=== PATIENT | male | born 1945 | race Caucasian/White ===

== ENCOUNTER 2019-04-25 11:22 | Outpatient (CLI) | payer MEDICARE ==
[2019-04-25 13:15] LABS: Hemoglobin 16.5 g/dL (14.0-18.0); Mean Corpuscular HGB CONC 33.5 g/dL (32.0-36.0); Mean Corpuscular Hemoglobin 30.9 pg (27.0-31.0); Mean Corpuscular Volume 92.4 fL (78.0-98.0); Mean Platelet Volume 7.7 fL (7.4-10.4); Platelet Count 171 thou/uL (130-400); RBC Distribution Width 13.4 % (11.5-14.5); Red Blood Cell (RBC) Count 5.33 mill/uL (4.70-6.10); White Blood Cell (WBC) Count 7.9 thou/uL (4.8-10.8)
[2019-04-25 13:23] LABS: PTT 31.4 SEC (22.9-36.1); Prothrombin Time 13.4 SEC (12.0-14.7)
[2019-04-25 13:33] LABS: Anion Gap 15 mmol/L (10-20); BUN (Urea Nitrogen) 21 mg/dL (8.4-25.7); Calc. Creatinine Clearance 0 mL/min (70-130); Calcium 10.3 mg/dL (7.8-10.44); Carbon Dioxide 25 mmol/L (23-31); Chloride 106 mmol/L (98-107); Estimated GFR-MDRD 54; Glucose 82 mg/dL (83-110); Potassium 4.5 mmol/L (3.5-5.1); Sodium 141 mmol/L (136-145)
[2019-04-25 13:38] LABS: Bilirubin Negative (Negative); Blood, Urine Negative (Negative); Clarity Clear (Clear); Glucose, Urine (Dipstick) Normal (Negative); Leukocyte Negative Leu/uL (Negative); Nitrite Negative (Negative); Protein, Urine (Dipstick) Negative (Neg-Trace); RBC/HPF 0-3 HPF (0-3); Squamous Epithelial 0-3 HPF (0-3); Urobilinogen Normal mg/dL (Less than 2); WBC/HPF 0-3 HPF (0-3)
[2019-04-25 13:48] LABS: Bacteria/HPF None Seen HPF (None Seen)
[2019-04-25 13:49] LABS: Calcium Oxalate Crystals 2+ HPF (None Seen)
== END 2019-04-25 11:23 | disposition home or self-care (01) ==
LOC: LABBT 11:22
PROVIDERS: ATTEND Urology
DX: Z01.818 Encounter for other preprocedural examination (principal); E78.5 Hyperlipidemia, unspecified; E66.9 Obesity, unspecified; K21.9 Gastro-esophageal reflux disease without esophagitis; N18.3 Chronic kidney disease, stage 3 (moderate); R97.20 Elevated prostate specific antigen [PSA]; R74.8 Abnormal levels of other serum enzymes; M10.9 Gout, unspecified
CPT/HCPCS: 80048; 81001; 85027; 85610; 85730; 87086; 93005; 93010

== ENCOUNTER 2019-05-03 08:24 | Day surgery (SDC) | payer MEDICARE ==
[2019-04-25 11:42] VITALS: BMI 32.8
[2019-05-03] MEDS ORDERED: cefTRIAXone\\ROCEPHIN 1 GM VIAL ONE (09:11)
[2019-05-03] MEDS ORDERED: Sodium Chloride 0.9% 100 ML ONE (09:11)
[2019-05-03] MEDS ORDERED: Midazolam HCl 2 mg/2 ml Vial ONE (10:04)
[2019-05-03] MEDS ORDERED: Meperidine HCl/PF 25 MG/ML VIAL ONE (10:04)
[2019-05-03] MEDS ORDERED: Propofol 500 MG/50 ML VIAL ONE (10:23)
[2019-05-03] MEDS ORDERED: Lidocaine 1% PF 5 ML VIAL ONE (11:57)
[2019-05-03] MEDS ORDERED: HYDROcodone/Acetaminophen 5/325 mg Tablet ONE (12:11)
--- NOTE | 2019-05-04 11:54 | OP ---
DATE OF PROCEDURE: 05/03/2019 SERVICE: Urology. PREOPERATIVE DIAGNOSIS: Elevated PSA. POSTOPERATIVE DIAGNOSIS: Elevated PSA. PROCEDURE PERFORMED: Transrectal ultrasound-guided biopsy with MRI fusion. INDICATION FOR PROCEDURE: Mr. Hinton is a 73-year-old white male with history of TURP in the past. His PSA has been rising and he had a concerning lesion on MRI. We elected to proceed forward with MRI fusion biopsy to identify if there was any cancer present with risks and benefits discussed. DESCRIPTION OF PROCEDURE: After identification of armband and verification of consent, the patient was brought back to the operating room where he underwent total intravenous anesthesia. He was then placed in the left lateral decubitus position and the transrectal ultrasound placed into the patient's rectum. The MRI fusion process was carried out in the standard fashion by lining up the MR imaging over the ultrasound findings. This did lead to the area of concern appearing on the prostate. The targeted area was biopsied approximately 5 times with standard 12 core biopsies taken throughout the remainder of the prostate in the standard sextant template. After the procedure, the ultrasound probe was removed and the patient was returned back to the supine position. He was then awakened and taken to Day Stay for recovery in stable condition. COMPLICATIONS: None. ESTIMATED BLOOD LOSS: Minimal. RETAINED TUBES AND DRAINS: None. SPECIMENS: Prostate biopsies. DISPOSITION: The patient will be discharged home and follow up with me in approximately 1 to 2 weeks for biopsy results. Job ID: [id number]
== END 2019-05-03 13:40 | disposition home or self-care (01) ==
LOC: SDC 08:24
PROVIDERS: ATTEND Urology
PROC: 0VB03ZX Excision of Prostate, Percutaneous Approach, Diagnostic (ICD-10-PCS; principal; 2019-05-03)
DX: C61 Malignant neoplasm of prostate (principal); M19.90 Unspecified osteoarthritis, unspecified site; K21.9 Gastro-esophageal reflux disease without esophagitis; M10.9 Gout, unspecified; N18.3 Chronic kidney disease, stage 3 (moderate); N40.1 Benign prostatic hyperplasia with lower urinary tract symptoms; N52.34 Erectile dysfunction following simple prostatectomy; Z79.1 Long term (current) use of non-steroidal anti-inflammatories (NSAID); Z79.82 Long term (current) use of aspirin; Z79.899 Other long term (current) drug therapy; Z88.2 Allergy status to sulfonamides
CPT/HCPCS: 88305; J0696; J2001; J2175; J2250; J2704; J3490

== ENCOUNTER 2019-05-29 09:45 | Outpatient (CLI) | payer MEDICARE ==
--- NOTE | 2019-05-29 13:23 | NM ---
NM Bone Scan STANDARD History: Prostate cancer. Malignant neoplasm of prostate Comparison: None. Findings: Delayed whole-body imaging was obtained after the intravenous administration 32.9 mCi techn etium 99m MDP. Adequate osseous radiotracer uptake. Scattered degenerative changes of the midfoot bilaterally as wel l as of the knees. No evidence for osseous metastatic disease. Kidneys and urinary bladder are visualized. Impression: No evidence for osseous metastatic disease.
== END 2019-05-29 09:46 | disposition home or self-care (01) ==
LOC: NM 09:45
PROVIDERS: ATTEND Urology
DX: C61 Malignant neoplasm of prostate (principal)
CPT/HCPCS: 78306; A9503

== ENCOUNTER 2019-12-19 10:24 | Outpatient (CLI) | payer MEDICARE ==
--- NOTE | 2019-12-19 11:08 | CT ---
CT Stone Protocol 12/19/2019 12:00 AM HISTORY: Blood in urine. Diagnosis of prostate cancer. COMPARISON: None. Technique: Multiple contiguous axial CT images are obtained through the abdomen and pelvis without IV contrast. Coronal reformats are provided. FINDINGS: This examination is limited for the evaluation of solid organs and vascular structures due to the lac k of intravenous contrast. Lower Chest: Lung bases are clear. Vascular calcifications are seen in the coronary arteries. Small hiatal hernia is seen. Abdomen: Liver: Diminished attenuation relative to the spleen suggesting fatty infiltration. Small area of fat ty sparing is seen adjacent to the gallbladder. Gallbladder: Contracted. Pancreas: Grossly normal nonenhanced CT appearance. Spleen: Single punctate calcified granuloma. Adrenals: Grossly normal nonenhanced CT appearance. Kidneys: 2 nonobstructing right renal calculi are seen each measuring approximately 2 mm. No hydronep hrosis is present. Nonspecific symmetric bilateral perinephric stranding. Ureters: No ureteral calculus is seen.. Pelvis: Urinary bladder: Decompressed. Reproductive Organs: No pelvic masses. Lymph Nodes: No enlarged lymph nodes. Bowel: Normal caliber. Appendix: Not visualized. There is a metallic clip seen at the cecal apex, and findings may be attrib utable to prior appendectomy. Peritoneum: No free fluid, free air, or fluid collection. Retroperitoneum: within normal limits. Vessels: Vascular calcifications are seen in the abdominal aorta and iliac arteries.. Abdominal Wall: within normal limits. Bones: Degenerative changes are seen at the pubic symphysis. There is a focus of gas seen just superi or and anterior to the pubic symphysis which may be attributable to degenerative changes at this level. Surgical clips are also seen adjacent to the pubic symphysis. Degenerative changes are seen in the spine. Bilateral hip osteoarthritis is present. IMPRESSION: 1. Nonobstructing right renal calculi. No left renal or ureteral calculi are seen. No hydronephrosis is present. 2. Small hiatal hernia. 3. Fatty infiltration of the liver.
== END 2019-12-19 10:25 | disposition home or self-care (01) ==
LOC: SCSCT 10:24
PROVIDERS: ATTEND Internal Medicine Hematology & Oncology
DX: C61 Malignant neoplasm of prostate (principal); R31.0 Gross hematuria; N20.0 Calculus of kidney; K44.9 Diaphragmatic hernia without obstruction or gangrene; K76.0 Fatty (change of) liver, not elsewhere classified
CPT/HCPCS: 74176

== ENCOUNTER 2019-12-27 07:20 | Outpatient (CLI) | payer MEDICARE ==
[2019-12-27 13:07] LABS: PTT 32.9 SEC (22.9-36.1); Prothrombin Time 13.6 SEC (12.0-14.7)
[2019-12-27 13:12] LABS: Hemoglobin 13.3 g/dL (14.0-18.0); Mean Corpuscular HGB CONC 33.3 g/dL (32.0-36.0); Mean Corpuscular Hemoglobin 31.9 pg (27.0-31.0); Mean Corpuscular Volume 95.8 fL (78.0-98.0); Platelet Count 144 thou/uL (130-400); RBC Distribution Width 15.3 % (11.5-14.5); Red Blood Cell (RBC) Count 4.16 mill/uL (4.70-6.10); White Blood Cell (WBC) Count 23.4 thou/uL (4.8-10.8)
[2019-12-27 13:20] LABS: Anion Gap 16 mmol/L (10-20); BUN (Urea Nitrogen) 21 mg/dL (8.4-25.7); Calc. Creatinine Clearance 0 mL/min (70-130); Calcium 10.2 mg/dL (7.8-10.44); Carbon Dioxide 20 mmol/L (23-31); Chloride 104 mmol/L (98-107); Estimated GFR-MDRD 57; Glucose 119 mg/dL (83-110); Potassium 4.2 mmol/L (3.5-5.1); Sodium 136 mmol/L (136-145)
[2019-12-27 13:41] LABS: Bilirubin Negative (Negative); Blood, Urine 3+ (Negative); Clarity Turbid (Clear); Glucose, Urine (Dipstick) Normal (Negative); Leukocyte 25 Leu/uL (Negative); Nitrite Negative (Negative); Protein, Urine (Dipstick) 50 mg/dL (Neg-Trace); RBC/HPF Greater than 50 HPF (0-3); Squamous Epithelial None Seen HPF (0-3); Urobilinogen Normal mg/dL (Less than 2); WBC/HPF 21-50 HPF (0-3)
[2019-12-27 14:12] LABS: Bacteria/HPF 1+ HPF (None Seen)
[2019-12-27 14:13] LABS: Calcium Oxalate Crystals 2+ HPF (None Seen)
--- NOTE | 2019-12-28 06:58 | EKG ---
Test Reason : Blood Pressure : / mmHG Vent. Rate : 093 BPM Atrial Rate : 093 BPM P-R Int : 132 ms QRS Dur : 064 ms QT Int : 344 ms P-R-T Axes : 058 035 014 degrees QTc Int : 427 ms Normal sinus rhythm Anterior infarct , age undetermined Abnormal ECG When compared with ECG of 25-APR-2019 12:25, Nonspecific T wave abnormality now evident in Anterior leads Confirmed by DR. Asha GONZALEZ ([id number]) on 12/28/2019 6:58:02 AM Referred By: DELIA Confirmed By:DR. Asha GONZALEZ
== END 2019-12-27 07:21 | disposition home or self-care (01) ==
LOC: LABBT 07:20
PROVIDERS: ATTEND Urology
DX: Z01.818 Encounter for other preprocedural examination (principal); C61 Malignant neoplasm of prostate; R31.0 Gross hematuria; N32.0 Bladder-neck obstruction
CPT/HCPCS: 80048; 81001; 85027; 85610; 85730; 87086; 93005; 93010

== ENCOUNTER 2020-01-02 12:42 | Outpatient (CLI) | payer MEDICARE, OTHER ==
[2020-01-02 18:02] LABS: SARS-CoV-2 MS2 Positive; SARS-CoV-2 N Gene Negative; SARS-CoV-2 S Gene Negative; SARS-CoV-2 orf1ab Negative
== END 2020-01-02 12:43 | disposition home or self-care (01) ==
LOC: LABBT 12:42
PROVIDERS: ATTEND Urology
DX: Z11.59 Encounter for screening for other viral diseases (principal)
CPT/HCPCS: 87635; U0003

== ENCOUNTER 2020-01-03 05:56 | Day surgery (SDC) | payer MEDICARE ==
[2020-01-03] MEDS ORDERED: Levofloxacin 500 mg/D5W 100 ml Premix Bag ONE (06:22)
[2020-01-03] MEDS ORDERED: Fentanyl 100 MCG/2 ML VIAL ONE (06:33)
[2020-01-03] MEDS ORDERED: Midazolam HCl 2 mg/2 ml Vial ONE (07:06)
[2020-01-03] MEDS ORDERED: Promethazine HCl 25 MG/ML VIAL SLOW IVP PRN (08:36)
[2020-01-03] MEDS ORDERED: Ondansetron HCl/PF 4 MG/2 ML Vial IVP PRN (08:36)
[2020-01-03] MEDS ORDERED: Promethazine HCl 25 MG/ML VIAL IM PRN (08:36)
[2020-01-03] MEDS ORDERED: Oxybutynin 5 MG TAB PO PRN (08:45)
[2020-01-03] MEDS ORDERED: Ondansetron PF 4 MG/2 ML Vial IVP PRN (08:45)
[2020-01-03] MEDS ORDERED: Hyoscyamine Sulfate SL 0.125 mg Tablet SL PRN (08:45)
[2020-01-03] MEDS ORDERED: diphenhydrAMINE 25 MG CAP PO PRN (08:45)
[2020-01-03] MEDS ORDERED: hydrALAZINE 20 MG/ML VIAL SLOW IVP PRN (08:45)
[2020-01-03] MEDS ORDERED: Bisacodyl 10 MG SUPP PR PRN (08:45)
[2020-01-03] MEDS ORDERED: Morphine 2 MG/ML SYRINGE SLOW IVP PRN (08:45)
[2020-01-03] MEDS ORDERED: Acetaminophen 500 MG TAB PO PRN (08:45)
[2020-01-03] MEDS ORDERED: Mag-Al 1200 mg/1200 mg/30 ML UDCUP PO PRN (08:45)
[2020-01-03] MEDS ORDERED: traMADol HCl 50 MG TAB PO PRN (08:47)
[2020-01-03] MEDS ORDERED: Vancomycin 1 GM in Premix Bag 1 BAG IVPB SCH (09:00)
[2020-01-03] MEDS ORDERED: Konsyl 6 gm Packet PO SCH (09:00)
--- NOTE | 2020-01-03 09:30 | OP ---
DATE OF PROCEDURE: 01/03/2020 SERVICE: Urology. PREOPERATIVE DIAGNOSES: Prostate cancer with obstruction and gross hematuria. POSTOPERATIVE DIAGNOSES: Prostate cancer with obstruction and gross hematuria. PROCEDURE PERFORMED: Transurethral resection of prostate, repeat surgery for regrowth. INDICATION FOR SURGERY: Mr. Hinton is a 74-year-old white male with history of prostate cancer, high risk, which is currently being treated with radiation and chemotherapy. He developed gross hematuria and on cystoscopy, he was found to have a hypertrophic nodule within the prostatic urethra, which was likely resulting in urinary obstruction as well as his hematuria. We discussed treatment conservatively with ongoing chemo, androgen deprivation, and allowing the radiation to cause shrinkage versus just resecting this and being treated more quickly. He elected for the surgical approach. Risks and benefits were discussed and he has agreed to proceed forward. DESCRIPTION OF PROCEDURE: After identification of armband and verification of consent, the patient was brought back to the operating room. He underwent anesthesia with endotracheal intubation. He was then placed in a dorsal lithotomy position and prepped and draped in usual sterile fashion. After appropriate time-out, a lubricated 26-Peruvian resectoscope sheath with visual obturator was passed through the urethra into the prostate. There was a mild bulbar annular stricture, which was easily navigated past. The prostate was mostly resected out and very atrophic except for the hypertrophic nodule, which previously had been noted on outpatient cystoscopy. The bladder neck was slightly narrowed. Both ureters were in orthotopic location. The bladder was otherwise unremarkable without any significant evidence of any kind of radiation cystitis. The visual obturator was switched out for the bipolar prostate resectoscope loop. Resection was started on the hypertrophic nodule, which was primarily anteriorly and to the right. This was shaved down until it was flushed with the remainder of the prostatic capsule. A few other areas of hypertrophy and reddened areas, which could bleed were also resected and cauterized. Any bleeding areas were cauterized. Meticulous hemostasis was then performed. The bladder neck was slightly narrowed and the left side was further away from the ureteral orifice than the right. I only resected part of the left bladder neck to allow for widening of the urine stream. This area was then meticulously cauterized. The prostate chips and part of the bladder neck were then evacuated using the resectoscope sheath and sent off for routine pathologic evaluation. Upon completion, both ureters were in orthotopic location unharmed. The bladder was normal. The bleeding was completely stopped within the prostatic urethra and the prostate was wide open with no evidence of ongoing bleeding. The bladder was left full and the resectoscope removed. A 20-Peruvian two-way Pedroza catheter was placed with ease into the bladder with 15 mL of sterile water into the balloon. This was then affixed to gravity bag for drainage and secured with a StatLock. The patient was then taken out of positioning, awakened, taken to PACU for recovery in stable condition. COMPLICATIONS: None. ESTIMATED BLOOD LOSS: Minimal. RETAINED TUBES AND DRAINS: A 20-Peruvian Pedroza catheter to gravity drainage with 15 mL of sterile water in the balloon. SPECIMENS: Prostate chips. DISPOSITION: The patient will be kept in the hospital overnight for monitoring and bleeding. He can undergo a void trial in the morning, so long as his hematuria is [id number]. We will then handle his care on an outpatient basis. He will continue to get his chemotherapy treatments. He has completed with radiation. This will be handled by the Oncology Department on an outpatient basis. Job ID: [id number]
[2020-01-03] MEDS: Docusate 100 MG CAP PO SCH ×2 (11:05→21:14)
[2020-01-03] MEDS: Famotidine 20 MG TAB PO SCH ×2 (11:05→21:14)
[2020-01-03 11:29] VITALS: BMI 32.8
[2020-01-03] MEDS: Vancomycin 1 GM in Premix Bag 1 BAG IVPB SCH ×2 (11:58→23:16)
[2020-01-03] MEDS: Phenazopyridine HCl 97.5 MG TABLET PO PRN ×2 (12:00→21:25)
[2020-01-03] MEDS ORDERED: predniSONE 5 MG TAB PO SCH (18:00)
[2020-01-03] MEDS ORDERED: Atorvastatin Calcium 20 MG TAB PO SCH (21:00)
[2020-01-03] MEDS ORDERED: Allopurinol 300 MG TAB PO SCH (21:00)
[2020-01-03] MEDS: Metamucil PACK PO SCH (21:15)
[2020-01-04 05:39] LABS: #Lymphocytes 0.9 thou/uL (1.20-3.40); #Monocytes 0.8 thou/uL (0.11-0.59); #Neutrophils 9.9 thou/uL (1.40-6.50); %Basophils 0.3 % (0.0-1.0); %Eosinophils 0.1 % (0.0-10.0); %Lymphocytes 7.9 % (21.0-51.0); %Monocytes 6.8 % (0.0-10.0); %Neutrophils 84.9 % (42.0-75.0); Mean Corpuscular HGB CONC 32.3 g/dL (32.0-36.0); Mean Corpuscular Hemoglobin 31.5 pg (27.0-31.0); Mean Corpuscular Volume 97.6 fL (78.0-98.0); Mean Platelet Volume 8.1 fL (7.4-10.4); Platelet Count 143 thou/uL (130-400); RBC Distribution Width 15.6 % (11.5-14.5); White Blood Cell (WBC) Count 11.6 thou/uL (4.8-10.8)
[2020-01-04 05:54] LABS: Anion Gap 12 mmol/L (10-20); BUN (Urea Nitrogen) 19 mg/dL (8.4-25.7); Calc. Creatinine Clearance 88 mL/min (70-130); Calcium 10.2 mg/dL (7.8-10.44); Carbon Dioxide 24 mmol/L (23-31); Chloride 105 mmol/L (98-107); Estimated GFR-MDRD 66; Glucose 128 mg/dL (83-110); Potassium 4.2 mmol/L (3.5-5.1); Sodium 137 mmol/L (136-145)
--- NOTE | 2020-01-04 08:38 | PRG ---
DATE OF SERVICE: 01/04/2020 Coverage for primary urologist, Dr. Shoaib Pack. SUBJECTIVE: The patient without complaints. OBJECTIVE: VITAL SIGNS: Stable. He is afebrile. GENERAL: I's and O's are 3280 in and 3750 out. ABDOMEN: Soft, nontender, nondistended. GENITOURINARY: Pedroza catheter demonstrating yellow, Azo-tinged urine. PERTINENT LABORATORY DATA: White count 11, hemoglobin 12, and platelets 143. BMP profile is within normal limits. IMPRESSION AND PLAN: Mr. Hinton is a 74-year-old male, postop day #1, status post transurethral resection of the prostate. His urine output is clear. Labs reviewed, which is unremarkable. We will discontinue Pedroza catheter. The patient can be discharged home after spontaneous void. Postop discharge orders in chart. Appointment with Dr. Pack on January 11, 2020. Job ID: [id number]
[2020-01-04] MEDS: Famotidine 20 MG TAB PO SCH ×2 (09:16→09:18)
[2020-01-04] MEDS: Metamucil PACK PO SCH (09:16)
[2020-01-04] MEDS: Docusate 100 MG CAP PO SCH (09:16)
[2020-01-04 12:13] VITALS: BP 156/87; TEMP 97.8
== END 2020-01-04 12:43 | disposition home or self-care (01) ==
LOC: SDC 05:56 → SURG A 08:45 → SDC 01-04 12:43
PROVIDERS: ATTEND Urology
PROC: 0VT08ZZ Resection of Prostate, Via Natural or Artificial Opening Endoscopic (ICD-10-PCS; principal; 2020-01-03)
DX: C61 Malignant neoplasm of prostate (principal); N40.1 Benign prostatic hyperplasia with lower urinary tract symptoms; N13.8 Other obstructive and reflux uropathy; R31.0 Gross hematuria; N35.912 Unspecified bulbous urethral stricture, male; N52.34 Erectile dysfunction following simple prostatectomy; L03.314 Cellulitis of groin; N18.3 Chronic kidney disease, stage 3 (moderate); M19.90 Unspecified osteoarthritis, unspecified site; K21.9 Gastro-esophageal reflux disease without esophagitis; M10.9 Gout, unspecified; E66.01 Morbid (severe) obesity due to excess calories; Z68.32 Body mass index [BMI] 32.0-32.9, adult; Z79.1 Long term (current) use of non-steroidal anti-inflammatories (NSAID); Z79.52 Long term (current) use of systemic steroids; Z79.82 Long term (current) use of aspirin; Z79.899 Other long term (current) drug therapy; Z88.2 Allergy status to sulfonamides
CPT/HCPCS: 36415; 80048; 85025; 88305; J1956; J2250; J3010; J3370; J7512; Q0163

== ENCOUNTER 2020-03-17 04:39 | Outpatient (CLI) | payer MEDICARE, OTHER ==
[2020-03-17 11:14] LABS: Mean Corpuscular HGB CONC 32.9 g/dL (32.0-36.0); Mean Corpuscular Volume 97.4 fL (78.0-98.0); Mean Platelet Volume 8.6 fL (7.4-10.4); Platelet Count 169 thou/uL (130-400); RBC Distribution Width 17.4 % (11.5-14.5); Red Blood Cell (RBC) Count 4.37 mill/uL (4.70-6.10); White Blood Cell (WBC) Count 3.8 thou/uL (4.8-10.8)
[2020-03-17 11:21] LABS: PTT 29.9 sec (22.9-36.1); Prothrombin Time 13.3 sec (12.0-14.7)
[2020-03-17 11:32] LABS: Anion Gap 16 mmol/L (10-20); BUN (Urea Nitrogen) 19 mg/dL (8.4-25.7); Calc. Creatinine Clearance 0 mL/min (70-130); Calcium 9.4 mg/dL (7.8-10.44); Carbon Dioxide 20 mmol/L (23-31); Chloride 105 mmol/L (98-107); Estimated GFR-MDRD 62; Glucose 124 mg/dL (83-110); Potassium 4.4 mmol/L (3.5-5.1); Sodium 137 mmol/L (136-145)
[2020-03-17 12:10] LABS: Blood, Urine Large (Negative)
[2020-03-17 12:20] LABS: Clarity CLOUDY (Clear); Leukocyte Unable to Interpret (Negative); Specific Gravity, Urine 1.026 (1.002-1.036); pH, Urine 5.9 (5.0-9.0)
[2020-03-17 12:21] LABS: Bilirubin Unable to Interpret (Negative); Glucose, Urine (Dipstick) Unable to Interpret mg/dL (Negative); Ketone, Urine Unable to Interpret mg/dL (Negative); Nitrite Unable to Interpret (Negative); Protein, Urine (Dipstick) 200 mg/dL (Neg-Trace); Urobilinogen UNABLE TO INTERPRET mg/dL (Less than 2)
[2020-03-17 12:24] LABS: Bacteria/HPF 2+ HPF (None Seen); RBC/HPF Greater than 50 HPF (0-3); Squamous Epithelial 0-3 HPF (0-3); WBC/HPF 21-50 HPF (0-3)
[2020-03-18 14:02] LABS: SARS-CoV-2 MS2 Positive; SARS-CoV-2 N Gene Negative; SARS-CoV-2 S Gene Negative; SARS-CoV-2 orf1ab Negative
== END 2020-03-17 04:40 | disposition home or self-care (01) ==
LOC: LABBT 04:39
PROVIDERS: ATTEND Urology
DX: Z01.818 Encounter for other preprocedural examination (principal); Z11.59 Encounter for screening for other viral diseases; C61 Malignant neoplasm of prostate; N41.8 Other inflammatory diseases of prostate; N40.1 Benign prostatic hyperplasia with lower urinary tract symptoms; N18.3 Chronic kidney disease, stage 3 (moderate); N52.34 Erectile dysfunction following simple prostatectomy; L03.314 Cellulitis of groin; N30.40 Irradiation cystitis without hematuria; R31.0 Gross hematuria; E66.01 Morbid (severe) obesity due to excess calories
CPT/HCPCS: 80048; 81001; 85027; 85610; 85730; 87077; 87086; 87186; 93005; U0003; 87635; 93010

== ENCOUNTER 2020-03-20 09:02 | Observation (INO) | payer MEDICARE ==
[2020-03-17 12:20] VITALS: BMI 31.7
[2020-03-20] MEDS ORDERED: Levofloxacin 500 mg/D5W 100 ml Premix Bag ONE (09:55)
[2020-03-20] MEDS ORDERED: Fentanyl 100 MCG/2 ML VIAL ONE ×4 (10:13→13:15)
[2020-03-20] MEDS ORDERED: Triamcinolone 40 MG/ML VIAL IJ SCH (10:15)
[2020-03-20] MEDS ORDERED: B & O ONE (10:50)
[2020-03-20] MEDS ORDERED: hydrALAZINE 20 MG/ML VIAL SLOW IVP PRN (11:12)
[2020-03-20] MEDS ORDERED: Morphine 2 MG/ML VIAL SLOW IVP PRN (11:12)
[2020-03-20] MEDS ORDERED: HYDROcodone/Acetaminophen 5/325 mg Tablet PO PRN (11:12)
[2020-03-20] MEDS ORDERED: Bisacodyl 10 MG SUPP PR PRN (11:12)
[2020-03-20] MEDS ORDERED: Acetaminophen 500 MG TAB PO PRN (11:12)
[2020-03-20] MEDS ORDERED: diphenhydrAMINE 25 MG CAP PO PRN (11:12)
[2020-03-20] MEDS ORDERED: Mag-Al 1200 mg/1200 mg/30 ML UDCUP PO PRN (11:12)
[2020-03-20] MEDS ORDERED: Ondansetron PF 4 MG/2 ML Vial IVP PRN (11:12)
[2020-03-20] MEDS ORDERED: Phenazopyridine HCl 97.5 MG TABLET PO PRN (11:12)
[2020-03-20] MEDS ORDERED: Oxybutynin 5 MG TAB PO PRN (11:12)
[2020-03-20] MEDS ORDERED: Morphine 4 MG/ML VIAL SLOW IVP PRN (11:12)
[2020-03-20] MEDS ORDERED: Triamcinolone 40 MG/ML VIAL ONE (11:20)
[2020-03-20] MEDS ORDERED: Sodium Chloride 0.9% 10 ML ONE (11:50)
[2020-03-20] MEDS ORDERED: PHENYLEPHRINE-NS 100 MCG/ML 10 ML SYRINGE ONE (12:17)
[2020-03-20] MEDS ORDERED: Dexamethasone 20 MG/5 ML VIAL ONE (12:17)
[2020-03-20] MEDS ORDERED: Lidocaine 1% PF 5 ML VIAL ONE (12:17)
[2020-03-20] MEDS ORDERED: PROPOFOL 200 MG/20 ML VIAL ONE (12:17)
[2020-03-20] MEDS ORDERED: Ondansetron PF 4 MG/2 ML Vial ONE (12:17)
[2020-03-20] MEDS ORDERED: Morphine 4 MG/ML VIAL ONE (13:01)
[2020-03-20] MEDS ORDERED: PACU-Morphine 4MG/ML VIAL SLOW IVP PRN (13:04)
[2020-03-20] MEDS ORDERED: Ondansetron HCl/PF 4 MG/2 ML Vial IVP PRN (13:04)
[2020-03-20] MEDS ORDERED: Morphine Sulfate 2 MG/ML SYRINGE SLOW IVP PRN (13:04)
[2020-03-20] MEDS ORDERED: Non-Formulary Medication 1 EACH PO PRN (13:04)
[2020-03-20] MEDS ORDERED: Promethazine HCl 25 MG/ML VIAL IM/IV PRN (13:04)
[2020-03-20] MEDS ORDERED: Morphine 2 MG/ML VIAL ONE ×2 (13:09→13:20)
[2020-03-20] MEDS: Hyoscyamine Sulfate SL 0.125 mg Tablet SL PRN (16:37)
[2020-03-20] MEDS: HYDROcodone/Acetaminophen 5/325 mg Tablet PO PRN (16:38)
--- NOTE | 2020-03-20 16:52 | OP ---
DATE OF PROCEDURE: 03/20/2020 SERVICE: Urology. PREOPERATIVE DIAGNOSIS: Prostate cancer with dystrophic calcification. POSTOPERATIVE DIAGNOSIS: Prostate cancer with dystrophic calcification. PROCEDURE PERFORMED: Transurethral resection of the prostate with intraprostatic injection with triamcinolone. INDICATIONS FOR PROCEDURE: Mr. Hinton is a 74-year-old white male with high-risk aggressive prostate cancer status post radiation. He previously has a remote history of a TURP converted to an open simple prostatectomy. He did have adenomatous regrowth with obstructive symptoms and hematuria. Therefore, we elected to go for a TURP, which he completed several weeks ago. Unfortunately, his postoperative course was complicated by heavy calcifications, scarring, significant pain, and hematuria. Repeat cystoscopy demonstrated heavy calcification build up with intraprostatic stones, likely responsible for the patient's pain. I recommended repeat resection with injection of the triamcinolone and we also set the patient up for hyperbaric oxygen treatments. Risks and benefits of surgery were discussed including lack of success, and the patient understands the risks and wishes to proceed forward. DESCRIPTION OF PROCEDURE: After identification of armband and verification of consent, the patient was brought back to the operating room, where he underwent general anesthesia with an LMA. He was then placed in a dorsal lithotomy position, and prepped and draped in usual sterile fashion. After appropriate time-out, a lubricated 26-Icelandic resectoscope with visual obturator was passed through the urethra and through the prostate into the bladder. The prostate showed the heavy calcification previously demonstrated on outpatient cystoscopy. The visual obturator was switched out for the bipolar prostate resectoscope loop. Resection was initially started out near the bladder neck trying to undermine the calcified areas and get into healthy prostate tissue. There was significant difficulty in trying to undermine the prostate. Therefore, we switched to the bladder loop on the resectoscope, which had an easier time undermining the calcified and scarred areas. The prostate was relatively thin on the posterior aspect, so most of the calcifications were scraped off rather than actually resecting it out of fear of extracapsular perforation. No perforations were made, but the capsular fibers of the prostatic capsule could be identified both laterally and posteriorly. Most of the calcifications were removed. Upon completion, approximately 95% of the calcified and diseased tissue appeared to be removed and all that was left was a few small fragments of calcifications which were attempted to be scraped off. Hemostasis was then performed circumferentially around the prostate, and once completed, I felt comfortable that this was the most that I could probably safely do transurethrally. chips were then evacuated using the resectoscope loop. Both ureters were identified in orthotopic location, unharmed at the end of the case. They were both effluxing clear urine. The resectoscope was then removed and a 22-Icelandic rigid cystoscope was introduced per urethra into the bladder. This was pulled back into the prostate using the Botox injector needle, set to 4 mm. Intraprostatic injections of triamcinolone were performed. A concentration of 40 mg and 1 mL of triamcinolone was ordered. We diluted this out to a total of 4 mL. These were injected throughout the prostate in 4 quadrants and the remaining 1 mL flush of normal saline was used to get what was out in the injector needle into the prostate as well. Upon completion, the Botox needle was removed and the cystoscope was also removed. Attempts to place a 22-Icelandic 3-way Pedroza catheter was met with resistance as it was hitting the posterior aspect of the prostatic fossa. I therefore had to go back in with the cystoscope and place a guidewire in the bladder and then removed the cystoscope. The 20-Icelandic 3-way Pedroza catheter was fashioned into a Councill-tip catheter using a 14-gauge Angiocath needle. This was then fed with ease into the bladder and 30 mL of sterile water placed into the balloon. The wire was removed. CBI was initiated and catheter affixed to the patient's leg with a StatLock. A B and O suppository was placed. The patient was taken out of positioning, awakened, and taken to PACU for recovery in stable condition. COMPLICATIONS: None. ESTIMATED BLOOD LOSS: Minimal. RETAINED TUBE AND DRAINS: 20-Icelandic 3-way Pedroza catheter on CBI. SPECIMENS: Prostate chips. DISPOSITION: The patient will remain in the hospital overnight. We will plan a void trial tomorrow. If the patient has to have a repeat catheter placed, a coude would work better. We will plan hyperbaric oxygen as an outpatient and follow up on an outpatient basis. Job ID: [id number]
[2020-03-20] MEDS: Metamucil PACK PO SCH (20:20)
[2020-03-20] MEDS: Docusate 100 MG CAP PO SCH (20:20)
[2020-03-20] MEDS ORDERED: Atorvastatin Calcium 20 MG TAB PO SCH (21:00)
[2020-03-21] MEDS: HYDROcodone/Acetaminophen 5/325 mg Tablet PO PRN ×2 (01:02→09:11)
[2020-03-21] MEDS: Hyoscyamine Sulfate SL 0.125 mg Tablet SL PRN (01:02)
[2020-03-21] MEDS ORDERED: predniSONE 5 MG TAB PO SCH (08:00)
[2020-03-21] MEDS ORDERED: Allopurinol 300 MG TAB PO SCH (09:00)
[2020-03-21] MEDS: Metamucil PACK PO SCH (09:04)
[2020-03-21] MEDS: Docusate 100 MG CAP PO SCH (09:04)
--- NOTE | 2020-03-21 09:33 | PRG ---
DATE OF SERVICE: 03/21/2020 SUBJECTIVE: The patient states he is feeling pretty good. He took a pain pill last night, which significantly alleviated his pain, but he states his pain is increasing this morning. He denies any fevers, chest pain, or shortness of breath. Otherwise, he is having a little bit of reflux currently. OBJECTIVE: VITAL SIGNS: Temperature 97.6, pulse 81, respirations 16, blood pressure 103/67, saturation 98% on room air. GENERAL: No apparent distress. Communicative and alert. CARDIOVASCULAR: Regular rate and rhythm. ABDOMEN: Soft, nontender, nondistended. Positive bowel sounds. : Pedroza catheter in place, draining clear yellow urine. EXTREMITIES: No edema. CBI is currently off. ASSESSMENT AND PLAN: A 74-year-old white male with high-risk prostate cancer, status post radiation and prior transurethral resection of the prostate with dystrophic calcifications, requiring repeat transurethral resection of the prostate, which he just completed. He is postop day 1. His pain is rising a little bit, so I think this may be due to the catheter to some extent. We will go ahead and remove his catheter, and he is probably having some postop irritation. He can take another pain pill or bladder irritant medications to help with the symptoms. If his symptoms are improving, I think we will just stay the course. If his symptoms are worsening, we will check for infection, and if negative, start another course of steroids with a Medrol Dosepak. I told him he can take some Maalox currently for his reflux, which should avoid calcium based reflux medications chronically to avoid dystrophic calcifications again in the prostate. As soon as the patient is able, he should start hyperbaric oxygen treatments. We will remove his catheter today and see how he does, pending a void trial. If his urine is clear enough, he can be discharged home. I have gone over all discharge instructions. We will plan to see him back in followup on an outpatient basis. Job ID: [id number]
[2020-03-21 13:25] VITALS: BP 103/71; TEMP 98.4
== END 2020-03-21 15:06 | disposition home or self-care (01) ==
LOC: SDC 09:02 → SJJU 11:12
PROVIDERS: ADMIT Urology; ATTEND Urology
PROC: 0VT08ZZ Resection of Prostate, Via Natural or Artificial Opening Endoscopic (ICD-10-PCS; principal; 2020-03-20)
DX: C61 Malignant neoplasm of prostate (principal); N42.89 Other specified disorders of prostate; N41.8 Other inflammatory diseases of prostate; N40.1 Benign prostatic hyperplasia with lower urinary tract symptoms; N52.34 Erectile dysfunction following simple prostatectomy; R31.0 Gross hematuria; K21.9 Gastro-esophageal reflux disease without esophagitis; M19.90 Unspecified osteoarthritis, unspecified site; N18.3 Chronic kidney disease, stage 3 (moderate); M10.9 Gout, unspecified; E66.01 Morbid (severe) obesity due to excess calories; Z68.31 Body mass index [BMI] 31.0-31.9, adult; Z79.899 Other long term (current) drug therapy; Z88.2 Allergy status to sulfonamides
CPT/HCPCS: 52630; 88305; J2270; 96365; G0378; J1100; J1956; J2405; J2704; J3010; J3301; J7512

== ENCOUNTER 2020-08-05 06:41 | Outpatient (CLI) | payer MEDICARE ==
[2020-08-05 12:29] LABS: Bilirubin Neg (Negative); Specific Gravity, Urine 1.025 (1.002-1.036); pH, Urine 6.5 (5.0-9.0)
[2020-08-05 12:43] LABS: Hemoglobin 13.3 g/dL (14.0-18.0); Mean Corpuscular HGB CONC 32.4 G/DL (32.0-36.0); Mean Corpuscular Hemoglobin 29.2 PG (27.0-33.0); Mean Corpuscular Volume 90.1 fl (80.0-100.0); Mean Platelet Volume 10.2 fl (7.4-10.4); Platelet Count 178 10x3/uL (130-400); RBC Distribution Width 15.9 % (11.5-14.5); Red Blood Cell (RBC) Count 4.56 10x6/uL (4.40-5.80); White Blood Cell (WBC) Count 6.7 10x3/uL (4.5-11.0)
[2020-08-05 12:49] LABS: Clarity Cloudy (Clear); Glucose, Urine (Dipstick) Unable to Interpret mg/dL (Negative); Leukocyte Unable to Interpret (Negative); Nitrite Unable to Interpret (Negative); Protein, Urine (Dipstick) Unable to Interpret mg/dl (Neg-Trace)
[2020-08-05 12:50] LABS: Blood, Urine Unable to Interpret (Negative); Ketone, Urine Unable to Interpret mg/dL (Negative); PTT 29.3 sec (22.0-33.0); Prothrombin Time 10.9 sec (9.5-12.1); Urobilinogen UNABLE TO INTERPRET mg/dL (Less than 2)
[2020-08-05 12:55] LABS: WBC/HPF Greater than 50 HPF (0-3)
[2020-08-05 12:58] LABS: Squamous Epithelial 0-3 HPF (0-3)
[2020-08-05 12:59] LABS: Anion Gap 13 mmol/L (10-20); BUN (Urea Nitrogen) 12 mg/dL (8.4-25.7); Bacteria/HPF 3+ HPF (None Seen); Calc. Creatinine Clearance 0 mL/min (70-130); Calcium 9.7 mg/dL (7.8-10.44); Carbon Dioxide 28 mmol/L (23-31); Chloride 104 mmol/L (98-107); Estimated GFR-MDRD 65; Glucose 98 mg/dL (83-110); Potassium 4.5 mmol/L (3.5-5.1); RBC/HPF Greater than 50 HPF (0-3); Sodium 140 mmol/L (136-145)
[2020-08-05 13:01] LABS: Mucous/LPF 1+ LPF (<2+)
[2020-08-06 03:02] LABS: SARS-CoV-2 MS2 Positive; SARS-CoV-2 N Gene Negative; SARS-CoV-2 S Gene Negative; SARS-CoV-2 by NAA Not Detected (NotDetected); SARS-CoV-2 orf1ab Negative
== END 2020-08-05 06:42 | disposition home or self-care (01) ==
LOC: LABBT 06:41
PROVIDERS: ATTEND Urology
DX: Z01.812 Encounter for preprocedural laboratory examination (principal); Z20.828 Contact with and (suspected) exposure to other viral communicable diseases; N30.40 Irradiation cystitis without hematuria
CPT/HCPCS: 80048; 81001; 85027; 85610; 85730; 87086; U0003; 87635

== ENCOUNTER 2020-08-07 09:33 | Day surgery (SDC) | payer MEDICARE ==
[2020-08-06 11:33] VITALS: BMI 27.1
[2020-08-07] MEDS ORDERED: Levofloxacin 500 mg/D5W 100 ml Premix Bag ONE (09:48)
[2020-08-07] MEDS ORDERED: Ondansetron PF 4 MG/2 ML Vial ONE (11:36)
[2020-08-07] MEDS ORDERED: PHENYLEPHRINE-NS 100 MCG/ML 10 ML SYRINGE ONE (11:36)
[2020-08-07] MEDS ORDERED: Lidocaine 1% PF 5 ML VIAL ONE (11:36)
[2020-08-07] MEDS ORDERED: PROPOFOL 200 MG/20 ML VIAL ONE (11:36)
[2020-08-07] MEDS ORDERED: Fentanyl 100 MCG/2 ML VIAL ONE ×3 (14:12→16:13)
[2020-08-07] MEDS ORDERED: B & O ONE (14:14)
[2020-08-07] MEDS ORDERED: Meperidine HCl/PF 25 MG/ML VIAL ONE (16:24)
--- NOTE | 2020-08-07 21:26 | OP ---
DATE OF PROCEDURE: 08/07/2020 SERVICE: Urology. PREOPERATIVE DIAGNOSIS: Dystrophic calcification of prostate. POSTOPERATIVE DIAGNOSIS: Dystrophic calcification of prostate. PROCEDURE PERFORMED: Cystolitholapaxy of extensive prostatic calcifications, more than 2.5 cm worth of stone. INDICATIONS FOR PROCEDURE: Mr. Hinton is a 74-year-old white male with history of prostate cancer. He underwent radiation therapy to his prostate. Unfortunately, he did develop bleeding and obstructive features with some calcifications in the prostate. He underwent TURP, which resulted in severe dystrophic calcification formation. After prolonged medical management, he underwent repeat resection, which unfortunately resulted in repeat dystrophic calcification recurrence with severe symptoms. At this point, we have elected to stop resecting, and I have elected to perform a cystolitholapaxy with destruction of prostatic stones in attempt to minimize inflammation of the prostate. Risks and benefits were discussed and he has agreed to proceed forward. DESCRIPTION OF PROCEDURE: After identification of armband and verification of consent, the patient was brought to the operating room, where he underwent general anesthesia with an LMA. He was then placed in dorsal lithotomy position and prepped and draped in usual sterile fashion. After appropriate time-out, a 22-Bulgarian rigid cystoscope was introduced per urethra into the prostate, where extensive dystrophic calcification was noted. The stones were bluish-green colored as the patient has been on hyoscine extensively over the past several months resulting in staining of the stones. Using a 500 micron laser fiber, the stones were fragmented into small pieces and the majority of the wall of the prostate was cleared off surface calcifications until the majority of calcification was removed. There was still an extensive amount of crystallization of the prostatic urothelium, which unfortunately will not be able to be cleared in attempt to avoid extensive inflammation and recurrent dystrophic calcification. Again, I have elected not to perform repeat resection, but essentially to break off as much surface stone as possible and hopefully try to preserve the urothelium intact to minimize recurrent dystrophic calcification. After all the stone had been lasered off, the prostatic fossa appeared wide open. The majority of the stone was removed. Again, the entire prostatic urothelium was crystallized with diseased appearing tissues. All these stone fragments were irrigated out from the patient's bladder. The Genisphere Ince electrode was brought in at the end of the case, to use touch cautery on a few points that had some mild oozing until there was excellent hemostasis. The bladder was filled up and then the cystoscope removed. An 18-Bulgarian Pedroza catheter was placed in the patient's bladder. He then had B and O suppository placed, was taken out of position, awakened, and taken to PACU for recovery in stable condition. COMPLICATIONS: None. ESTIMATED BLOOD LOSS: Minimal. RETAINED TUBES AND DRAINS: 18-Bulgarian Pedroza catheter to gravity drainage. SPECIMENS: Stone for stone analysis. DISPOSITION: The patient will have his catheter removed in PACU. We will ensure that he can void, then he can be discharged home. I will put him on a Medrol Dosepak to try and reduce inflammation and then we will handle his care on an outpatient basis. Job ID: [id number] MTDD
== END 2020-08-07 20:25 | disposition home or self-care (01) ==
LOC: SDC 09:33
PROVIDERS: ATTEND Urology
PROC: 0TCB8ZZ Extirpation of Matter from Bladder, Via Natural or Artificial Opening Endoscopic (ICD-10-PCS; principal; 2020-08-07)
DX: N42.0 Calculus of prostate (principal); N41.8 Other inflammatory diseases of prostate; C61 Malignant neoplasm of prostate; N40.1 Benign prostatic hyperplasia with lower urinary tract symptoms; N39.41 Urge incontinence; N52.34 Erectile dysfunction following simple prostatectomy; N18.30 Chronic kidney disease, stage 3 unspecified; M10.9 Gout, unspecified; M19.90 Unspecified osteoarthritis, unspecified site; Z79.899 Other long term (current) drug therapy; Z88.2 Allergy status to sulfonamides; K21.9 Gastro-esophageal reflux disease without esophagitis
CPT/HCPCS: 82365; 88300; J1956; J2175; J2405; J2704; J3010

== ENCOUNTER 2022-06-23 11:52 | Emergency (ER) | payer MEDICARE ==
[2022-06-23 12:47] LABS: #Eosinphils 0.1 thou/uL (0.0-0.7); #Lymphocytes 0.9 thou/uL (1.20-3.40); #Monocytes 0.7 thou/uL (0.11-0.59); #Neutrophils 8.5 thou/uL (1.40-6.50); %Basophils 0.3 % (0.0-1.0); %Eosinophils 0.9 % (0.0-10.0); %Lymphocytes 8.7 % (21.0-51.0); %Monocytes 6.7 % (0.0-10.0); %Neutrophils 83.5 % (42.0-75.0); Hemoglobin 14.2 g/dL (14.0-18.0); Mean Corpuscular HGB CONC 33.2 g/dL (32.0-36.0); Mean Corpuscular Hemoglobin 31.5 pg (27.0-31.0); Mean Corpuscular Volume 95.1 fL (78.0-98.0); Mean Platelet Volume 7.2 fL (7.4-10.4); Platelet Count 148 thou/uL (130-400); RBC Distribution Width 13.7 % (11.5-14.5); Red Blood Cell (RBC) Count 4.52 mill/uL (4.70-6.10); White Blood Cell (WBC) Count 10.1 thou/uL (4.8-10.8)
[2022-06-23 13:09] LABS: ALT (SGPT) 41 U/L (8-55); AST (SGOT) 39 U/L (5-34); Albumin 4.2 g/dL (3.4-4.8); Alkaline Phosphatase 99 U/L (40-110); Anion Gap 13 mmol/L (10-20); BUN (Urea Nitrogen) 18 mg/dL (8.4-25.7); Bilirubin, Total 0.8 mg/dL (0.2-1.2); Calc. Creatinine Clearance 0 mL/min (70-130); Calcium 9.6 mg/dL (7.8-10.44); Carbon Dioxide 23 mmol/L (23-31); Chloride 109 mmol/L (98-107); Estimated GFR 56; Glucose 123 mg/dL (83-110); Lipase 20 U/L (8-78); Potassium 4.8 mmol/L (3.5-5.1); Protein, Total 7.2 g/dL (5.8-8.1); Sodium 140 mmol/L (136-145)
== END 2022-06-23 15:12 | disposition home or self-care (01) ==
LOC: ERS 11:52
DX: R31.9 Hematuria, unspecified (principal); R33.9 Retention of urine, unspecified
CPT/HCPCS: 36415; 80053; 81001; 83690; 85025; 87086; 99283

== ENCOUNTER 2022-08-08 18:51 | Emergency (ER) | payer MEDICARE ==
[2022-08-08 19:21] LABS: #Eosinphils 0.1 thou/uL (0.0-0.7); #Lymphocytes 1.5 thou/uL (1.20-3.40); #Monocytes 0.5 thou/uL (0.11-0.59); #Neutrophils 9.3 thou/uL (1.40-6.50); %Eosinophils 0.9 % (0.0-10.0); %Lymphocytes 13.2 % (21.0-51.0); %Monocytes 4.4 % (0.0-10.0); %Neutrophils 81.5 % (42.0-75.0); Hemoglobin 14.4 g/dL (14.0-18.0); Mean Corpuscular HGB CONC 34.4 g/dL (32.0-36.0); Mean Corpuscular Hemoglobin 32.7 pg (27.0-31.0); Mean Corpuscular Volume 94.9 fl (78.0-98.0); Mean Platelet Volume 7.4 fL (7.4-10.4); Platelet Count 174 10x3/uL (130-400); RBC Distribution Width 14.3 % (11.5-14.5); White Blood Cell (WBC) Count 11.4 10x3/uL (4.8-10.8)
[2022-08-08 19:47] LABS: ALT (SGPT) 38 U/L (8-55); AST (SGOT) 60 U/L (5-34); Albumin 4.3 g/dL (3.4-4.8); Alkaline Phosphatase 98 U/L (40-110); Anion Gap 15 mmol/L (10-20); BUN (Urea Nitrogen) 24 mg/dL (8.4-25.7); Bilirubin, Total 0.5 mg/dL (0.2-1.2); Calc. Creatinine Clearance 0 mL/min (70-130); Calcium 9.3 mg/dL (7.8-10.44); Carbon Dioxide 20 mmol/L (23-31); Chloride 109 mmol/L (98-107); Estimated GFR 58; Globulin 3.7 g/dL (2.4-3.5); Glucose 145 mg/dL (83-110); Potassium 5.3 mmol/L (3.5-5.1); Sodium 139 mmol/L (136-145)
[2022-08-08] MEDS ORDERED: Lidocaine 4% Cream 5 GM TUBE w/ Tegaderm ONE (21:29)
[2022-08-08] MEDS ORDERED: FENTANYL 50 MCG/ML 1 ML VIAL ONE (21:29)
[2022-08-08 22:33] LABS: Bilirubin Large (Negative); Blood, Urine Large (Negative); Glucose, Urine (Dipstick) 100 mg/dL (Negative); Ketone, Urine 15 mg/dL (Negative); Leukocyte Moderate (Negative); Nitrite Positive (Negative); Protein, Urine (Dipstick) > or equal to 300 mg/dL (Neg-Trace)
[2022-08-08 22:39] LABS: Clarity Extra Turbid (Clear); RBC/HPF Greater than 50 HPF (0-3)
[2022-08-08 22:41] LABS: Bacteria/HPF Rare-Few HPF (None Seen)
[2022-08-08 23:32] LABS: Anion Gap 13 mmol/L (10-20); BUN (Urea Nitrogen) 25 mg/dL (8.4-25.7); Calc. Creatinine Clearance 0 mL/min (70-130); Calcium 9.4 mg/dL (7.8-10.44); Carbon Dioxide 21 mmol/L (23-31); Chloride 111 mmol/L (98-107); Estimated GFR 77; Glucose 112 mg/dL (83-110); Potassium 4.3 mmol/L (3.5-5.1); Sodium 141 mmol/L (136-145)
[2022-08-08] MEDS ORDERED: cefTRIAXone\\ROCEPHIN 2 GM VIAL ONE (23:55)
== END 2022-08-09 01:01 | disposition home or self-care (01) ==
LOC: ERS 18:51
DX: R31.9 Hematuria, unspecified (principal); K21.9 Gastro-esophageal reflux disease without esophagitis; E78.5 Hyperlipidemia, unspecified; Z79.899 Other long term (current) drug therapy
CPT/HCPCS: 80048; 80053; 85025; 86850; 86900; 86901; 87077; 87086; J3010; 36415; 81003; 81015; 87186; 96365; 96375; J0696

== ENCOUNTER 2025-09-02 09:52 | Outpatient (CLI) | payer MEDICARE ==
[2025-09-02 10:31] LABS: Estimated GFR - POC 55.0
== END 2025-09-02 09:53 | disposition home or self-care (01) ==
LOC: SCSMRI 09:52
PROVIDERS: ATTEND Radiology Radiation Oncology
DX: C22.0 Liver cell carcinoma (principal); K76.9 Liver disease, unspecified
CPT/HCPCS: 36415; 74183; 82565